=== PATIENT | female | born 1995 | race Caucasian/White ===

== ENCOUNTER 2021-06-02 14:17 | Inpatient (IN) ==
[2021-06-02] MEDS ORDERED: APRESOLINE INJ 20 MG VIAL IVP ONE (14:49)
[2021-06-02] MEDS ORDERED: APRESOLINE INJ 20 MG VIAL ONE (14:51)
--- NOTE | 2021-06-02 15:10 | DR.SOBA ---
HPI <Naveed Camp - Last Filed: 06/02/21 20:35> Time Seen Time Seen by Provider: 06/02/21 14:48 Primary Care Physician Primary Care Physician: hernandez Complaints Chief Complaint Doctors Comments: 26 y/o female presents feeling poorly after delivery. Delivered 6 days ago, started having shortness of breath 3 days ago, as well as headache. Denies cough, fever or chills. No chest pain. Is having swollen ankles. This was the third delivery for the pt, no problems first two. Did develop pre-eclampsia, was induced 2 weeks early. Sent home without BP meds. Chief Complaint:: shortness of breath that worsened today. she gave 6 days ago in [place] with dr. ng. the delivery was 2 weeks early due to htn, 3 days post delivery started with shortness of breath and having headache. COVID-19 Coronavirus risk:travel/contact w/high risk person: No Has patient experienced Coronavirus symptoms: No Reviewed Nurses Notes Reviewed: Yes Source History Provided: Patient Mode of Arrival Mode of Arrival: Ambulatory Timing Onset of Chief Complaint: 06/02/21 PMH <Naveed Camp - Last Filed: 06/02/21 20:35> PMH Past Medical History: Yes Past Medical History: Headaches and Hypertension Past Surgical History: No Family History History of Family Medical Conditions: Yes Family Medical History: Diabetes Mellitus and Hypertension Social History Alcohol Use: None Do you use any recreational Drugs:: No Lives With: Family Lives Where: Home Infectious screening In the last 2 months have you had wt loss of >10#?: NO Have you had fever, night sweats or hemotysis?: No Have you traveled outside the country in the last 6 months?: No Isolation: Standard ROS <Naveed Camp - Last Filed: 06/02/21 20:35> Review of Systems Constitutional: No Symptoms Reported Eyes: No Symptoms Reported ENTM: No Symptoms Reported Respiratoy: Short of Breath Cardiovascular: Edema Gastrointestinal/Abdominal: No Symptoms Reported Genitourinary: No Symptoms Reported Neurological: No Symptoms Reported Musculoskeletal: No Symptoms Reported Integumentary: No Symptoms Reported Hematologic/Lymphatic: No Symptoms Reported Psychiatric: No Symptoms Reported All Other Systems: Reviewed and Negative PE <Naveed Camp Last Filed: 06/02/21 20:35> Vital Signs Vitals: Temperature 98.4 F Pulse Rate 91 Respiratory Rate 36 Blood Pressure [Right Arm] 132/78 Blood Pressure 179/89 O2 Sat by Pulse Oximetry 97 General Limitations: No Limitations General Appearance: Alert and In No Apparent Distress Head Head Exam: Normal Inspection Eyes Eye exam: Normal Appearance ENT ENT Exam: Normal Exam Neck Neck Exam: Normal Inspection and Full ROM Chest Chest Inspection: Normal Inspection Respiratory Respiratory Exam: Bilateral: Rales (at the bases) Cardiovascular Cardiovascular Exam: Regular Rate, Normal Rhythm and Normal Heart Sounds Abdominal Exam Abdominal Exam: Normal Inspection, Normal Bowel Sounds and Soft; negative Tenderness Extremities Extremities Exam: Edema (2+ pitting bilateral lower exts) Back Back Exam: Normal Inspection and Full ROM; negative Tenderness Neurologic Neurological Exam: Alert, Oriented X3 and CN II-XII Intact; negative Motor Sensory Deficit Psychiatric Psychiatric Exam: Normal Affect Skin Skin Exam: Warm, Dry and Intact <Lucie Kan - Last Filed: 06/03/21 05:21> Vital Signs Vitals: Temperature 98.4 F Pulse Rate 91 Respiratory Rate 36 Blood Pressure [Right Arm] 132/78 Blood Pressure 179/89 O2 Sat by Pulse Oximetry 97 [facility] <Naveed Camp - Last Filed: 06/02/21 20:35> Differential Diagnosis Differential Diagnosis: CHF Differential Diagnosis Comment:: p/p cardiomyopathy, PE COURSE <Naveed Camp - Last Filed: 06/02/21 20:35> Treatment Treatment: 26 y/o female presents with HTN, fluid overload, 6 days post-. W/u initiated. Pt given IV hydralazine to start. CXR read as normal, but hazy, believe she has some CHF. CBC shows mild anemia. CMP overall acceptable. BNP is elevated to 678. D-dimer elevated to 5+. Pt given IV lasix, 40 mg, with excellent output, 4+ Ls. U/a without proteinuria. 2000 - feeling better, pulse ox 99% on O2. Taken off O2 and ambulated. Pulse ox drops to 92%, BP increased. Given additional IV hydralazine. Pt signed over to my relief MD, Dr Kan. Will probably deserve admission, but will be observed further at this time (pt would like to go home). <Lucie Kan - Last Filed: 06/03/21 05:21> Treatment Treatment: care received from Dr Camp; pt feels "much better" but agrees to stay overnight for further monitoring, echo in am Critical Care Notes Total Time (mins): 30 Critical Diagnosis: chf, pre-clampsia post , malignant htn Critical Interventions: lasix with 5200cc out, treatment of extremely high bp, evaluation of ct scan lungs and labs, discussion of lab results and need for admit with pt; discussion of admission with Jacob SHEIKH <Naveed Camp - Last Filed: 06/02/21 20:35> Labs Reviewed Laboratory Results Reviewed?: Yes Result Diagrams: 06/02/21 15:02 06/02/21 15:02 Laboratory: WBC 9.2 X10^3/uL (3.6-10.0) 06/02/21 15:02 RBC 4.09 X10^6/uL (3.5-5.4) 06/02/21 15:02 Hgb 10.0 g/dL (12.0-16.0) L 06/02/21 15:02 Hct 30.6 % (36.0-47.0) L 06/02/21 15:02 MCV 74.8 fL (80.0-100.0) L 06/02/21 15:02 MCH 24.5 pg (27.0-34.0) L 06/02/21 15:02 MCHC 32.7 g/dL (33.0-35.0) L 06/02/21 15:02 RDW 15.7 % (11.6-16.5) 06/02/21 15:02 Plt Count 366 X10^3/uL (150.0-450.0) 06/02/21 15:02 Plt Count Comment Adequate (ADEQUATE) 06/02/21 15:02 MPV 8.1 fL (7.4-11.0) 06/02/21 15:02 Neut % (Auto) 73.2 % (42.0-75.0) 06/02/21 15:02 Lymph % (Auto) 17.0 % (21.0-51.0) L 06/02/21 15:02 [place] % (Auto) 5.3 % (0.0-13.0) 06/02/21 15:02 Eos % (Auto) 3.6 % (0.9-2.9) H 06/02/21 15:02 Baso % (Auto) 0.9 % (0.2-1.0) 06/02/21 15:02 Neut # (Auto) 6.7 x10^3/uL (2.2-4.8) H 06/02/21 15:02 Lymph # (Auto) 1.6 X10^3/uL (1.3-2.9) 06/02/21 15:02 [place] # (Auto) 0.5 x10^3/uL (0.3-0.8) 06/02/21 15:02 Eos # (Auto) 0.3 x10^3/uL (0.0-0.2) H 06/02/21 15:02 Baso # (Auto) 0.1 X10^3/uL (0.0-0.1) 06/02/21 15:02 Absolute Nucleated RBC 0.2 /100WBC 06/02/21 15:02 Plt Morphology Comment Normal (NORMAL) 06/02/21 15:02 RBC Morphology Abnormal (NORMAL) A 06/02/21 15:02 Hypochromasia Slight A 06/02/21 15:02 Microcytosis Slight A 06/02/21 15:02 PT 13.0 SECONDS (11.8-14.3) 06/02/21 15:02 INR Target Range - 06/02/21 15:02 INR 1.03 (0.8-1.3) 06/02/21 15:02 APTT 30.4 SECONDS (22.9-36.5) 06/02/21 15:02 PTT Comment - 06/02/21 15:02 Fibrinogen 350 mg/dL (239-489) 06/02/21 15:02 D-Dimer 5.26 ug/ml (0.0-0.57) H* 06/02/21 15:02 Sodium 141 mmol/L (136-145) 06/02/21 15:02 Corrected Sodium TNP 06/02/21 15:02 Potassium 4.5 mmol/L (3.5-5.1) 06/02/21 15:02 Chloride 104 mmol/L (98-107) 06/02/21 15:02 Carbon Dioxide 26.4 mmol/L (21-32) 06/02/21 15:02 BUN 14 mg/dL (7-18) 06/02/21 15:02 Creatinine 0.77 mg/dL (0.55-1.02) 06/02/21 15:02 Est GFR (MDRD) Af Amer > 60 (>60) 06/02/21 15:02 Est GFR (MDRD) Non-Af > 60 (>60) 06/02/21 15:02 Glucose 86 mg/dL (65-99) 06/02/21 15:02 Uric Acid 4.6 mg/dL (2.6-6.0) 06/02/21 15:02 Calcium 8.8 mg/dL (8.5-10.1) 06/02/21 15:02 Corrected Calcium 10.1 mg/dL (8.5-10.1) 06/02/21 15:02 Total Bilirubin 0.30 mg/dL (0.2-1.0) 06/02/21 15:02 AST 20 Units/L (15-37) 06/02/21 15:02 ALT 22 Units/L (12-78) 06/02/21 15:02 Alkaline Phosphatase 150 Units/L (46-116) H 06/02/21 15:02 Lactate Dehydrogenase 259 Units/L (81-234) H 06/02/21 15:02 B-Natriuretic Peptide 678 pg/mL (0-79) H* 06/02/21 15:02 Total Protein 6.9 g/dL (6.4-8.2) 06/02/21 15:02 Albumin 2.4 g/dL (3.4-5.0) L 06/02/21 15:02 Globulin 4.5 g/dL (2.5-4.5) 06/02/21 15:02 Albumin/Globulin Ratio 0.5 Ratio (1.1-2.1) L 06/02/21 15:02 Specimen Type Catherized urine 06/02/21 15:50 Urine Color Pale yellow (YELLOW) 06/02/21 15:50 Urine Appearance Clear (CLEAR) 06/02/21 15:50 Urine pH 7.0 (5.0 - 8.0) 06/02/21 15:50 Ur Specific [place] 1.005 (1.000-1.030) 06/02/21 15:50 Urine Protein Negative (NEGATIVE) 06/02/21 15:50 Urine Glucose (UA) Negative (NEGATIVE) 06/02/21 15:50 Urine Ketones Negative (NEGATIVE) 06/02/21 15:50 Urine Occult Blood Negative (NEGATIVE) 06/02/21 15:50 Urine Nitrite Negative (NEGATIVE) 06/02/21 15:50 Urine Bilirubin Negative (NEGATIVE) 06/02/21 15:50 Urine Urobilinogen Normal (NORMAL) 06/02/21 15:50 Ur Leukocyte Esterase Negative (NEGATIVE) 06/02/21 15:50 Other Results Comments: BNP 678. XRAY XRAY Interpreted by: Radiologist X-ray Results: per radiology, no acute changes on chest x-ray, poor pic due to body habitus (appears wet to me). <Lucie Kan - Last Filed: 06/03/21 05:21> Labs Reviewed Laboratory Results Reviewed?: Yes Laboratory: WBC 9.2 X10^3/uL (3.6-10.0) 06/02/21 15:02 RBC 4.09 X10^6/uL (3.5-5.4) 06/02/21 15:02 Hgb 10.0 g/dL (12.0-16.0) L 06/02/21 15:02 Hct 30.6 % (36.0-47.0) L 06/02/21 15:02 MCV 74.8 fL (80.0-100.0) L 06/02/21 15:02 MCH 24.5 pg (27.0-34.0) L 06/02/21 15:02 MCHC 32.7 g/dL (33.0-35.0) L 06/02/21 15:02 RDW 15.7 % (11.6-16.5) 06/02/21 15:02 Plt Count 366 X10^3/uL (150.0-450.0) 06/02/21 15:02 Plt Count Comment Adequate (ADEQUATE) 06/02/21 15:02 MPV 8.1 fL (7.4-11.0) 06/02/21 15:02 Neut % (Auto) 73.2 % (42.0-75.0) 06/02/21 15:02 Lymph % (Auto) 17.0 % (21.0-51.0) L 06/02/21 15:02 [place] % (Auto) 5.3 % (0.0-13.0) 06/02/21 15:02 Eos % (Auto) 3.6 % (0.9-2.9) H 06/02/21 15:02 Baso % (Auto) 0.9 % (0.2-1.0) 06/02/21 15:02 Neut # (Auto) 6.7 x10^3/uL (2.2-4.8) H 06/02/21 15:02 Lymph # (Auto) 1.6 X10^3/uL (1.3-2.9) 06/02/21 15:02 [place] # (Auto) 0.5 x10^3/uL (0.3-0.8) 06/02/21 15:02 Eos # (Auto) 0.3 x10^3/uL (0.0-0.2) H 06/02/21 15:02 Baso # (Auto) 0.1 X10^3/uL (0.0-0.1) 06/02/21 15:02 Absolute Nucleated RBC 0.2 /100WBC 06/02/21 15:02 Plt Morphology Comment Normal (NORMAL) 06/02/21 15:02 RBC Morphology Abnormal (NORMAL) A 06/02/21 15:02 Hypochromasia Slight A 06/02/21 15:02 Microcytosis Slight A 06/02/21 15:02 PT 13.0 SECONDS (11.8-14.3) 06/02/21 15:02 INR Target Range - 06/02/21 15:02 INR 1.03 (0.8-1.3) 06/02/21 15:02 APTT 30.4 SECONDS (22.9-36.5) 06/02/21 15:02 PTT Comment - 06/02/21 15:02 Fibrinogen 350 mg/dL (239-489) 06/02/21 15:02 D-Dimer 5.26 ug/ml (0.0-0.57) H* 06/02/21 15:02 Sodium 141 mmol/L (136-145) 06/02/21 15:02 Corrected Sodium TNP 06/02/21 15:02 Potassium 4.5 mmol/L (3.5-5.1) 06/02/21 15:02 Chloride 104 mmol/L (98-107) 06/02/21 15:02 Carbon Dioxide 26.4 mmol/L (21-32) 06/02/21 15:02 BUN 14 mg/dL (7-18) 06/02/21 15:02 Creatinine 0.77 mg/dL (0.55-1.02) 06/02/21 15:02 Est GFR (MDRD) Af Amer > 60 (>60) 06/02/21 15:02 Est GFR (MDRD) Non-Af > 60 (>60) 06/02/21 15:02 Glucose 86 mg/dL (65-99) 06/02/21 15:02 Uric Acid 4.6 mg/dL (2.6-6.0) 06/02/21 15:02 Calcium 8.8 mg/dL (8.5-10.1) 06/02/21 15:02 Corrected Calcium 10.1 mg/dL (8.5-10.1) 06/02/21 15:02 Total Bilirubin 0.30 mg/dL (0.2-1.0) 06/02/21 15:02 AST 20 Units/L (15-37) 06/02/21 15:02 ALT 22 Units/L (12-78) 06/02/21 15:02 Alkaline Phosphatase 150 Units/L (46-116) H 06/02/21 15:02 Lactate Dehydrogenase 259 Units/L (81-234) H 06/02/21 15:02 B-Natriuretic Peptide 678 pg/mL (0-79) H* 06/02/21 15:02 Total Protein 6.9 g/dL (6.4-8.2) 06/02/21 15:02 Albumin 2.4 g/dL (3.4-5.0) L 06/02/21 15:02 Globulin 4.5 g/dL (2.5-4.5) 06/02/21 15:02 Albumin/Globulin Ratio 0.5 Ratio (1.1-2.1) L 06/02/21 15:02 Specimen Type Catherized urine 06/02/21 15:50 Urine Color Pale yellow (YELLOW) 06/02/21 15:50 Urine Appearance Clear (CLEAR) 06/02/21 15:50 Urine pH 7.0 (5.0 - 8.0) 06/02/21 15:50 Ur Specific [place] 1.005 (1.000-1.030) 06/02/21 15:50 Urine Protein Negative (NEGATIVE) 06/02/21 15:50 Urine Glucose (UA) Negative (NEGATIVE) 06/02/21 15:50 Urine Ketones Negative (NEGATIVE) 06/02/21 15:50 Urine Occult Blood Negative (NEGATIVE) 06/02/21 15:50 Urine Nitrite Negative (NEGATIVE) 06/02/21 15:50 Urine Bilirubin Negative (NEGATIVE) 06/02/21 15:50 Urine Urobilinogen Normal (NORMAL) 06/02/21 15:50 Ur Leukocyte Esterase Negative (NEGATIVE) 06/02/21 15:50 XRAY XRAY Interpreted by: Radiologist X-ray Results: cta: 1. No evidence of pulmonary embolism. 2. Findings consistent with pulmonary edema of the lung bases with trace bilateral effusions. Superimposed infection is not excluded. Correlate clinically. Opioid <Naveed Camp - Last Filed: 06/02/21 20:35> Opioid Risk Tool Total: 0 Total Score Risk Category: Low Risk Copyright: Mat CAVAZOS predicting aberrant behaviors <Lucie Kan - Last Filed: 06/03/21 05:21> Opioid Risk Tool Total: 0 Total Score Risk Category: Low Risk <Naveed Camp - Last Filed: 06/02/21 20:35> Diagnosis Discharge Problem: Hypertension in , condition, Pre-eclampsia in period CHF (congestive heart failure) Qualifiers: Heart failure type: unspecified Heart failure chronicity: acute Qualified Code(s): I50.9 - Heart failure, unspecified Hypertensive CHF Qualifiers: Heart failure type: unspecified Qualified Code(s): I11.0 - Hypertensive heart disease with heart failure Hypertension Qualifiers: Hypertension type: primary hypertension Qualified Code(s): I10 - Essential (primary) hypertension Instructions Forms: [facility] Social Distancing
[2021-06-02 15:14] LABS: BASOPHILS # (AUTO) 0.1 X10^3/uL (0.0-0.1); BASOPHILS % (AUTO) 0.9 % (0.2-1.0); EOSINOPHILS # (AUTO) 0.3 x10^3/uL (0.0-0.2); EOSINOPHILS % (AUTO) 3.6 % (0.9-2.9); HEMATOCRIT 30.6 % (36.0-47.0); LYMPHOCYTES # (AUTO) 1.6 X10^3/uL (1.3-2.9); MEAN CORPUSCULAR HEMOGLOBIN 24.5 pg (27.0-34.0); MEAN CORPUSCULAR HGB CONC 32.7 g/dL (33.0-35.0); MEAN CORPUSCULAR VOLUME 74.8 fL (80.0-100.0); MEAN PLATELET VOLUME 8.1 fL (7.4-11.0); MONOCYTES # (AUTO) 0.5 x10^3/uL (0.3-0.8); MONOCYTES % (AUTO) 5.3 % (0.0-13.0); NEUTROPHILS # (AUTO) 6.7 x10^3/uL (2.2-4.8); NEUTROPHILS % (AUTO) 73.2 % (42.0-75.0); PLATELET COUNT 366 X10^3/uL (150.0-450.0); RED BLOOD COUNT 4.09 X10^6/uL (3.5-5.4); RED CELL DISTRIBUTION WIDTH 15.7 % (11.6-16.5); WHITE BLOOD COUNT 9.2 X10^3/uL (3.6-10.0)
[2021-06-02] MEDS ORDERED: LASIX IVP ONE ×2 (15:21→15:27)
[2021-06-02 15:26] LABS: ALANINE AMINOTRANSFERASE 22 Units/L (12-78); ALBUMIN 2.4 g/dL (3.4-5.0); ALKALINE PHOSPHATASE 150 Units/L (46-116); ASPARTATE AMINO TRANSFERASE 20 Units/L (15-37); BLOOD UREA NITROGEN 14 mg/dL (7-18); CALCIUM 8.8 mg/dL (8.5-10.1); CARBON DIOXIDE 26.4 mmol/L (21-32); CHLORIDE 104 mmol/L (98-107); COR CA(FOR HYPOALB) 10.1 mg/dL (8.5-10.1); CREATININE 0.77 mg/dL (0.55-1.02); LACTATE DEHYDROGENASE 259 Units/L (81-234); SODIUM 141 mmol/L (136-145); TOTAL PROTEIN 6.9 g/dL (6.4-8.2); URIC ACID 4.6 mg/dL (2.6-6.0); eGFR NON BLACK RACES > 60 (>60)
[2021-06-02 15:36] LABS: PLATELET MORPHOLOGY COMMENT NORMAL (NORMAL)
[2021-06-02 15:37] LABS: HYPOCHROMASIA SLIGHT; MICROCYTOSIS SLIGHT
--- NOTE | 2021-06-02 15:49 | RAD ---
HISTORYshortness of breath that worsened today. she gave 6 days ago, edemaSTUDYCHEST, 1 VIEWCOMPARISONNoneTECHNIQUEAP view of the chestFINDINGSThe cardiac and mediastinal contours are within normal limits. The lungs are clear without focal consolidation or segmental collapse. No pleural effusion or pneumothorax. Soft tissue attenuation limits evaluation.IMPRESSIONNo discernible acute pulmonary process.Electronically signed by: Karlo Schuler (Jun 02, 2021 15:47:21)
[2021-06-02 15:58] LABS: BILIRUBIN,URINE NEGATIVE (NEGATIVE); BLOOD/HEMOGLOBIN,URINE NEGATIVE (NEGATIVE); GLUCOSE, URINE NEGATIVE (NEGATIVE); KETONES,URINE NEGATIVE (NEGATIVE); LEUKOCYTE ESTERASE ,URINE NEGATIVE (NEGATIVE); NITRITES,URINE NEGATIVE (NEGATIVE); PROTEIN,URINE NEGATIVE (NEGATIVE); UROBILINOGEN,URINE NORMAL (NORMAL)
[2021-06-02 16:01] LABS: APPEARANCE,URINE CLEAR (CLEAR); COLOR,URINE PALE YELLOW (YELLOW)
--- NOTE | 2021-06-02 17:34 | CT ---
CTA CHESTCLINICAL INDICATION: Worsening shortness of breathPROCEDURE: Non gated axial images of the chest were obtained with intravenous contrast according to pulmonary embolism protocol. MIPS were reconstructed Dose reduction techniques including Automated Exposure Control (AEC) and adjustment of mA and kV were utlized.COMPARISON:NoneFINDINGS:No evidence of a pulmonary embolism to the level of the segmental pulmonary arteries.The heart is normal in size . No pericardial effusion . No suspicious mediastinal or axillary lymph nodes. Pulmonary edema and sub solid nodularity of the bilateral lung bases as well as trace bilateral effusions. No focal consolidations, pleural effusions or pneumothorax .Airways are patent . No suspicious pulmonary nodules or masses .Limited images of the upper abdomen are unremarkable.No aggressive osseous lesions.IMPRESSION:1. No evidence of pulmonary embolism.2. Findings consistent with pulmonary edema of the lung bases with trace bilateral effusions. Superimposed infection is not excluded. Correlate clinically.Electronically signed by: APRIL JONES (Jun 02, 2021 17:33:25)
[2021-06-02] MEDS ORDERED: TYLENOL 325 MG TAB PO PRN (21:53)
[2021-06-02] MEDS ORDERED: APRESOLINE INJ 20 MG VIAL IVP PRN (21:53)
[2021-06-02] MEDS ORDERED: ZOFRAN INJ 4 MG VIAL IVP PRN (21:53)
[2021-06-02] MEDS ORDERED: MOTRIN TAB 800 MG PO ONE ×2 (22:20→22:22)
[2021-06-03 00:02] VITALS: BMI 51.7
[2021-06-03] MEDS: APRESOLINE TAB 25 MG PO SCH ×2 (06:18→13:28)
[2021-06-03 06:33] LABS: BASOPHILS # (AUTO) 0.1 X10^3/uL (0.0-0.1); BASOPHILS % (AUTO) 0.6 % (0.2-1.0); EOSINOPHILS # (AUTO) 0.2 x10^3/uL (0.0-0.2); EOSINOPHILS % (AUTO) 2.1 % (0.9-2.9); HEMATOCRIT 31.8 % (36.0-47.0); HEMOGLOBIN 10.3 g/dL (12.0-16.0); LYMPHOCYTES % (AUTO) 19.8 % (21.0-51.0); MEAN CORPUSCULAR HEMOGLOBIN 24.2 pg (27.0-34.0); MEAN CORPUSCULAR HGB CONC 32.4 g/dL (33.0-35.0); MEAN CORPUSCULAR VOLUME 74.8 fL (80.0-100.0); MEAN PLATELET VOLUME 8.4 fL (7.4-11.0); MONOCYTES # (AUTO) 0.6 x10^3/uL (0.3-0.8); MONOCYTES % (AUTO) 6.3 % (0.0-13.0); NEUTROPHILS # (AUTO) 7.2 x10^3/uL (2.2-4.8); NEUTROPHILS % (AUTO) 71.2 % (42.0-75.0); PLATELET COUNT 422 X10^3/uL (150.0-450.0); RED BLOOD COUNT 4.25 X10^6/uL (3.5-5.4); RED CELL DISTRIBUTION WIDTH 15.8 % (11.6-16.5); WHITE BLOOD COUNT 10.1 X10^3/uL (3.6-10.0)
[2021-06-03 06:51] LABS: ALANINE AMINOTRANSFERASE 20 Units/L (12-78); ALBUMIN 2.4 g/dL (3.4-5.0); ALKALINE PHOSPHATASE 137 Units/L (46-116); ASPARTATE AMINO TRANSFERASE 16 Units/L (15-37); BLOOD UREA NITROGEN 15 mg/dL (7-18); CALCIUM 8.3 mg/dL (8.5-10.1); CARBON DIOXIDE 26.6 mmol/L (21-32); CHLORIDE 102 mmol/L (98-107); COR CA(FOR HYPOALB) 9.6 mg/dL (8.5-10.1); SODIUM 142 mmol/L (136-145); TOTAL PROTEIN 6.7 g/dL (6.4-8.2); eGFR NON BLACK RACES > 60 (>60)
[2021-06-03 07:39] LABS: HYPOCHROMASIA SLIGHT; MICROCYTOSIS SLIGHT; PLATELET MORPHOLOGY COMMENT NORMAL (NORMAL)
[2021-06-03] MEDS ORDERED: LASIX IVP SCH (09:00)
--- NOTE | 2021-06-03 09:04 | DR.H&P ---
H&P History & Physical for Day of: H&P Date: 06/03/21 Chief Complaint Chief Complaint: Shortness of breath Allergies Allergies Allergy/AdvReac Type Severity Reaction Status Date / Time No Known Drug Allergies Allergy Verified 06/02/21 14:23 History of Present Illness History of Present Illness: Pt is a 26 year old female presenting with shortness of breath for the past few days that progressively worsened. She is day 7 after delivering her 3rd child. Only complication was hypertension at 37 weeks. Labs/imaging: Wbc 10.1, Hgb 10.3, Plt 422, Na 142, K 3.2, Creatinine 0.70, Glucose 80, D-dimer 5.26, BNP 678, UA negative, COVID-19 negative, CXR: No discernible acute pulmonary process. CTA chest was obtained that revealed: 1. No evidence of pulmonary embolism. 2. Findings consistent with pulmonary edema of the lung bases with trace bilateral effusions. Superimposed infection is not excluded. Correlate clinically. Pt was given IV lasix 40mg and another dose this morning. Will get Echo to evaluate cardiac function. Cardiology consult. Start labetolol 100mg BID for hypertension. Replete potassium per protocol. Pt does feel better this morning. Will continue to monitor and follow up results. Past Medical History Past Medical History: Headaches and Hypertension Family History Family Medical History: Diabetes Mellitus and Hypertension Social History Alcohol Use: None Drug Use: None Medications Home Medications: No Known Drug Allergies Allergy (Verified 06/02/21 14:23) Labs Result Diagrams: 06/03/21 05:15 06/03/21 05:15 Labs: Laboratory WBC 10.1 X10^3/uL (3.6-10.0) H 06/03/21 05:15 RBC 4.25 X10^6/uL (3.5-5.4) 06/03/21 05:15 Hgb 10.3 g/dL (12.0-16.0) L 06/03/21 05:15 Hct 31.8 % (36.0-47.0) L 06/03/21 05:15 MCV 74.8 fL (80.0-100.0) L 06/03/21 05:15 MCH 24.2 pg (27.0-34.0) L 06/03/21 05:15 MCHC 32.4 g/dL (33.0-35.0) L 06/03/21 05:15 RDW 15.8 % (11.6-16.5) 06/03/21 05:15 Plt Count 422 X10^3/uL (150.0-450.0) 06/03/21 05:15 Plt Count Comment Adequate (ADEQUATE) 06/03/21 05:15 MPV 8.4 fL (7.4-11.0) 06/03/21 05:15 Neut % (Auto) 71.2 % (42.0-75.0) 06/03/21 05:15 Lymph % (Auto) 19.8 % (21.0-51.0) L 06/03/21 05:15 [place] % (Auto) 6.3 % (0.0-13.0) 06/03/21 05:15 Eos % (Auto) 2.1 % (0.9-2.9) 06/03/21 05:15 Baso % (Auto) 0.6 % (0.2-1.0) 06/03/21 05:15 Neut # (Auto) 7.2 x10^3/uL (2.2-4.8) H 06/03/21 05:15 Lymph # (Auto) 2.0 X10^3/uL (1.3-2.9) 06/03/21 05:15 [place] # (Auto) 0.6 x10^3/uL (0.3-0.8) 06/03/21 05:15 Eos # (Auto) 0.2 x10^3/uL (0.0-0.2) 06/03/21 05:15 Baso # (Auto) 0.1 X10^3/uL (0.0-0.1) 06/03/21 05:15 Absolute Nucleated RBC 0.2 /100WBC 06/03/21 05:15 Plt Morphology Comment Normal (NORMAL) 06/03/21 05:15 RBC Morphology Abnormal (NORMAL) A 06/03/21 05:15 Hypochromasia Slight A 06/03/21 05:15 Microcytosis Slight A 06/03/21 05:15 PT 13.0 SECONDS (11.8-14.3) 06/02/21 15:02 INR Target Range - 06/02/21 15:02 INR 1.03 (0.8-1.3) 06/02/21 15:02 APTT 30.4 SECONDS (22.9-36.5) 06/02/21 15:02 PTT Comment - 06/02/21 15:02 Fibrinogen 350 mg/dL (239-489) 06/02/21 15:02 D-Dimer 5.26 ug/ml (0.0-0.57) H* 06/02/21 15:02 Sodium 142 mmol/L (136-145) 06/03/21 05:15 Corrected Sodium TNP 06/03/21 05:15 Potassium 3.2 mmol/L (3.5-5.1) L 06/03/21 05:15 Chloride 102 mmol/L (98-107) 06/03/21 05:15 Carbon Dioxide 26.6 mmol/L (21-32) 06/03/21 05:15 BUN 15 mg/dL (7-18) 06/03/21 05:15 Creatinine 0.70 mg/dL (0.55-1.02) 06/03/21 05:15 Est GFR (MDRD) Af Amer > 60 (>60) 06/03/21 05:15 Est GFR (MDRD) Non-Af > 60 (>60) 06/03/21 05:15 Glucose 80 mg/dL (65-99) 06/03/21 05:15 Uric Acid 4.6 mg/dL (2.6-6.0) 06/02/21 15:02 Calcium 8.3 mg/dL (8.5-10.1) L 06/03/21 05:15 Corrected Calcium 9.6 mg/dL (8.5-10.1) 06/03/21 05:15 Total Bilirubin 0.30 mg/dL (0.2-1.0) 06/03/21 05:15 AST 16 Units/L (15-37) 06/03/21 05:15 ALT 20 Units/L (12-78) 06/03/21 05:15 Alkaline Phosphatase 137 Units/L (46-116) H 06/03/21 05:15 Lactate Dehydrogenase 259 Units/L (81-234) H 06/02/21 15:02 B-Natriuretic Peptide 678 pg/mL (0-79) H* 06/02/21 15:02 Total Protein 6.7 g/dL (6.4-8.2) 06/03/21 05:15 Albumin 2.4 g/dL (3.4-5.0) L 06/03/21 05:15 Globulin 4.3 g/dL (2.5-4.5) 06/03/21 05:15 Albumin/Globulin Ratio 0.6 Ratio (1.1-2.1) L 06/03/21 05:15 Specimen Type Catherized urine 06/02/21 15:50 Urine Color Pale yellow (YELLOW) 06/02/21 15:50 Urine Appearance Clear (CLEAR) 06/02/21 15:50 Urine pH 7.0 (5.0 - 8.0) 06/02/21 15:50 Ur Specific [place] 1.005 (1.000-1.030) 06/02/21 15:50 Urine Protein Negative (NEGATIVE) 06/02/21 15:50 Urine Glucose (UA) Negative (NEGATIVE) 06/02/21 15:50 Urine Ketones Negative (NEGATIVE) 06/02/21 15:50 Urine Occult Blood Negative (NEGATIVE) 06/02/21 15:50 Urine Nitrite Negative (NEGATIVE) 06/02/21 15:50 Urine Bilirubin Negative (NEGATIVE) 06/02/21 15:50 Urine Urobilinogen Normal (NORMAL) 06/02/21 15:50 Ur Leukocyte Esterase Negative (NEGATIVE) 06/02/21 15:50 SARS CoV-2 RNA Rapid NÉSTOR Negative (NEGATIVE) 06/02/21 22:00 Review of Systems Constitutional: No Symptoms Reported Eyes: No Symptoms Reported ENT: No Symptoms Reported Respiratory: Shortness of Breath Cardiovascular: No Symptoms Reported Gastrointestinal: No Symptoms Reported Genitourinary: No Symptoms Reported Musculoskeletal: No Symptoms Reported Skin: No Symptoms Reported Neurological: No Symptoms Reported Physical Exam Vital Signs: Temperature 97.8 F Pulse Rate [Radial] 91 Pulse Rate 89 Respiratory Rate 20 Blood Pressure [Left Arm] 154/86 Blood Pressure [Right Arm] 132/78 Blood Pressure 145/77 O2 Sat by Pulse Oximetry 95 Oriented: Normal Eyes: Normal Ear: Normal Nose: Normal Throat: Normal Respiratory: Clear Throughout Cardiovascular: Normal : Normal Auscultation: Bowel Sounds: Normal Palpation: Normal Tenderness: Normal Skin: Normal Musculoskeletal: Normal Psychiatric: Normal Mood Description: Calm and Appropriate Affect: Normal Speech Pattern: Clear and Appropriate Assessment/Plan (1) Hypertension in , condition: Status: Acute Plan: IV hydralazine prn (2) Pulmonary edema: Status: Acute Plan: IV lasix (3) Hypertensive CHF: Qualifiers: Heart failure type: unspecified Qualified Code(s): I11.0 - Hypertensive heart disease with heart failure Status: Acute Review H&P Reviewed: Yes Patient was examined?: Yes
[2021-06-03] MEDS ORDERED: POTASSIUM CHL 40 MEQ/NS 0.45% 500 ML IV PRN (09:26)
[2021-06-03] MEDS ORDERED: K-RIDER 10 MEQ/NS 100 ML 10 MEQ/100 ML BAG IV PRN (09:26)
[2021-06-03] MEDS ORDERED: POTASSIUM CHLORIDE LIQ 20 MEQ UDC PO PRN (09:26)
[2021-06-03] MEDS ORDERED: POTASSIUM CHL 60 MEQ/NS 0.45% 500 ML IV PRN (09:26)
[2021-06-03] MEDS ORDERED: KLOR-CON PO PRN (09:26)
[2021-06-03] MEDS ORDERED: K-DUR TAB 20 MEQ PO PRN (09:26)
[2021-06-03] MEDS ORDERED: MAGNESIUM SULFATE 1 GRAM/100 mL PREMIX 1 G/100 ML BAG IV PRN (09:26)
[2021-06-03] MEDS ORDERED: MICRO K EXTEN CAP 10 MEQ PO PRN (09:26)
[2021-06-03] MEDS ORDERED: NORMODYNE TAB 100 MG PO SCH (10:00)
[2021-06-03] MEDS ORDERED: LASIX IVP ONE (10:20)
--- NOTE | 2021-06-03 11:50 | RAD ---
HISTORYCHF, S/P CHILDBIRTHSTUDYCHEST x-ray, 1 VIEWCOMPARISONX-ray from previous dayFINDINGSThe trachea is midline. The cardiac silhouette is unremarkable .Lungs appear clear. No pneumothorax or pleural effusion is seen.No acute bony abnormality is seen.IMPRESSIONNo acute cardiopulmonary abnormality is seen.Electronically signed by: Justin Chow (Jun 03, 2021 11:48:42)
[2021-06-03 13:02] VITALS: BP 153/91
== END 2021-06-03 15:40 | disposition home or self-care (01) | DRG 776 ==
LOC: MED/SURG 14:17 → ER 14:17 → OBSVTOIN 21:49 → MED/SURG 23:08
PROVIDERS: ADMIT Family Medicine; ATTEND Family Medicine
DX: Z20.822 Contact with and (suspected) exposure to COVID-19; R51.9 Headache, unspecified; I50.1 Left ventricular failure, unspecified; O14.95 Unspecified pre-eclampsia, complicating the puerperium; R06.02 Shortness of breath; I11.0 Hypertensive heart disease with heart failure